=== PATIENT | female | born 1955 | race Caucasian/White ===

== ENCOUNTER → 2023-09-10 11:02 | Outpatient (REF) | payer OTHER, SELFPAY | LOC: HWCARD 11:02 | PROVIDERS: ATTENDING PHYSICIAN Family Medicine | DX: R07.89 Other chest pain (principal) | CPT/HCPCS: 93005 ==

== ENCOUNTER → 2023-09-11 09:51 | Outpatient (REF) | payer OTHER, SELFPAY | LOC: HWRAD 09:51 | PROVIDERS: ATTENDING PHYSICIAN Family Medicine; REFERRING PHYSICIAN Internal Medicine Endocrinology, Diabetes & Metabolism | DX: M81.0 Age-related osteoporosis without current pathological fracture (principal) | CPT/HCPCS: 77080 ==

== ENCOUNTER → 2023-12-08 10:26 | Outpatient (REF) | payer OTHER, SELFPAY | LOC: WDC 10:26 | PROVIDERS: ATTENDING PHYSICIAN Family Medicine | DX: N64.4 Mastodynia (principal) | CPT/HCPCS: 76642; 77062; 77066 ==

== ENCOUNTER → 2024-01-21 11:16 | Outpatient (REF) | payer OTHER, SELFPAY | LOC: HWRAD 11:16 | PROVIDERS: ATTENDING PHYSICIAN Family Medicine | DX: R06.09 Other forms of dyspnea (principal) | CPT/HCPCS: 71046 ==

== ENCOUNTER → 2024-04-27 10:25 | Outpatient (REF) | payer OTHER, SELFPAY | LOC: HWRAD 10:25 | PROVIDERS: ATTENDING PHYSICIAN Internal Medicine Critical Care Medicine; FAMILY PHYSICIAN Family Medicine | DX: R06.09 Other forms of dyspnea (principal); R04.2 Hemoptysis | CPT/HCPCS: 71250 ==

== ENCOUNTER 2024-06-14 06:36 | Day surgery (SDC) | payer OTHER, SELFPAY ==
[2024-06-14 10:30] VITALS: BMI 28.4
[2024-06-14 11:00] VITALS: BP 124/72
[2024-06-14 11:24] VITALS: BMI 28.4
[2024-06-14 13:01] VITALS: BP 102/62; BP 124/72
[2024-06-14 13:15] VITALS: BP 104/64
[2024-06-14 13:46] VITALS: BP 114/78
[2024-06-14 14:00] VITALS: BP 125/71
[2024-06-14 14:19] VITALS: BP 119/80
[2024-06-14 15:07] LABS: Brochalveolar Lavage Character Hazy (Clear); Brochalveolar Lavage Color Colorless; Brochalveolar Lavage Volume 5 ml
[2024-06-14 15:09] LABS: Brochalveolar Lavage Character Hazy (Clear); Brochalveolar Lavage Color Colorless; Brochalveolar Lavage Volume 5 ml
[2024-06-14 18:25] LABS: BAL Lymphocytes 35 %; BAL Macrophages 53 %; BAL Neutrophils 10 %; Brochalveolar Lavage WBC 12100 cells/ml
[2024-06-14 18:26] LABS: BAL Lining Cells 5 %
[2024-06-14 18:28] LABS: BAL Eosinophils 1 %; BAL Other Cells 1 %
[2024-06-14 18:42] LABS: Brochalveolar Lavage WBC 33550 cells/ml
[2024-06-14 18:44] LABS: BAL Eosinophils 1 %; BAL Lining Cells 12 %; BAL Lymphocytes 14 %; BAL Macrophages 73 %; BAL Neutrophils 12 %
== END 2024-06-14 14:35 | disposition home or self-care (01) ==
LOC: GI 06:36
PROVIDERS: ATTENDING PHYSICIAN Internal Medicine Critical Care Medicine
DX: J98.4 Other disorders of lung (principal); R89.6 Abnormal cytological findings in specimens from other organs, systems and tissues; R93.89 Abnormal findings on diagnostic imaging of other specified body structures; R04.2 Hemoptysis; R91.8 Other nonspecific abnormal finding of lung field; R06.02 Shortness of breath; R09.89 Other specified symptoms and signs involving the circulatory and respiratory systems; J98.09 Other diseases of bronchus, not elsewhere classified
CPT/HCPCS: 31624; 71045; 87070; 87102; 87116; 87205; 88112; 89051

== ENCOUNTER → 2024-08-27 13:00 | Outpatient (REF) | payer OTHER, SELFPAY | LOC: HWRAD 13:00 | PROVIDERS: ATTENDING PHYSICIAN Otolaryngology; FAMILY PHYSICIAN Family Medicine | DX: J39.2 Other diseases of pharynx (principal) | CPT/HCPCS: 70486 ==